=== PATIENT | male | born 1940 | race Caucasian/White ===

== ENCOUNTER 2020-11-29 18:11 | Emergency (ER) | payer OTHER ==
--- OUTSIDE RECORDS SUMMARY | 2020-11-29 18:15 | XMS REPORT | Continuity of Care Document ---
:[address] [facility] Address [address] [place] [address] Care Team Providers Name Role Phone Unavailable Unavailable Unavailable Problems This patient has no known problems. Allergies, Adverse Reactions, Alerts This patient has no known allergies or adverse reactions. Medications This patient has no known medications. Procedures This patient has no known procedures. Encounters Start End Encounter Admission Attending Care Care Encounter Source Date/Time Date/Time Type Type Clinicians Facility Department ID 2020-03-01 2020-03-01 Inpatient E [facility] [id number] [facility]NE 15:49:00 12:34:00 2020-02-18 2020-02-17 Inpatient E [facility] MED [id number] [facility]NE 12:15:00 22:16:00 2019-04-12 2019-04-12 Emergency E [facility] [id number] [facility]NE 06:17:00 06:17:00 2018-12-26 2018-12-26 Emergency E [facility] [id number] [facility]NE 10:08:00 10:08:00 Results This patient has no known results.
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
[2020-11-29] MEDS ORDERED: TETANUS & DIPHTHERIA TOX,ADULT 0.5 ML VIAL ONE (19:36)
[2020-11-29] MEDS ORDERED: BACI/NEOMYCIN/POLY OINT 15GM TOP ONE (19:36)
[2020-11-29 20:02] LABS: Absolute Lymphocytes (CBC) 2.4 K/uL (0.7-4.9); Basophils % 1.4 % (0-1.3); Hematocrit 37.2 % (39.6-49.0); Lymphocytes % 26.2 % (15.3-44.8); MPV 11.3 fL (7.6-11.3); RBC Red Blood Cell Count 4.28 M/uL (4.33-5.43)
[2020-11-29 20:19] LABS: Urine Blood NEGATIVE (NEG); Urine Glucose NEGATIVE (NEG); Urine Protein 1+ (NEG)
[2020-11-29 20:32] LABS: Blood Morphology Comment NOT SEEN (NOT SEEN); Platelet Estimate ADEQ; Platelets, Giant PRESENT; White Blood Cell Scan OK (OK)
[2020-11-29 20:34] LABS: Potassium 4.6 mmol/L (3.5-5.1)
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
[2020-11-29] MEDS ORDERED: NA CHLORIDE 0.9% 1,000 ML ONE (22:31)
[2020-11-29] MEDS ORDERED: ASPIRIN 325 MG TAB ONE (23:16)
[2020-11-30 01:05] VITALS: TEMP 98.6
[2020-11-30 01:13] VITALS: BP 160/110; O2SAT 98
== END 2020-11-30 00:17 | disposition short-term general hospital (02) ==
LOC: ER 18:11
DX: I63.9 Cerebral infarction, unspecified (principal); Z20.822 Contact with and (suspected) exposure to COVID-19; Z23 Encounter for immunization; R29.702 NIHSS score 2; I10 Essential (primary) hypertension; E78.00 Pure hypercholesterolemia, unspecified; S50.811A Abrasion of right forearm, initial encounter; S19.9XXA Unspecified injury of neck, initial encounter; S29.9XXA Unspecified injury of thorax, initial encounter; V89.2XXA Person injured in unspecified motor-vehicle accident, traffic, initial encounter
CPT/HCPCS: 96361; 85025; 80048; 36415; 86900; 86850; 82565; 86901; 81003; 70450; 71250; 72125; 71275; 74175; 90471; 90714; 96360; 99285; U0003; Q9967; J7030